=== PATIENT | female | born 1960 | race African-American/Black ===

== ENCOUNTER 2016-12-13 16:37 | Emergency (ER) | payer MEDICARE, OTHER ==
[2016-12-13 16:41] VITALS: BP 133/81; PULSE 83; RESP 18; TEMP 98
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
--- NOTE | 2016-12-13 17:53 | XR ---
EXAMINATION TYPE: XR lumbosacral spine min 4V DATE OF EXAM: 12/13/2016 5:43 PM COMPARISON: 10/17/2013 HISTORY: Back pain TECHNIQUE: 6 views FINDINGS: The vertebra have fairly normal alignment. Abdominal aorta is atheromatous. There is no sig nificant disc space narrowing. There is no compression fracture. Posterior elements are intact. There are electrode wires noted over the lower lumbar spine posteriorly. The sacroiliac joints appear inta ct. IMPRESSION: Negative lumbar spine exam. No change. No compression fracture.
[2016-12-13] MEDS ORDERED: KETOROLAC 60 MG/2 ML VIAL IM STA (17:55)
== END 2016-12-13 18:24 | disposition home or self-care (01) ==
LOC: EC 16:37
DX: M54.5 Low back pain (principal); G89.29 Other chronic pain; V89.2XXS Person injured in unspecified motor-vehicle accident, traffic, sequela; Z79.899 Other long term (current) drug therapy; Z88.7 Allergy status to serum and vaccine; I10 Essential (primary) hypertension; Z79.51 Long term (current) use of inhaled steroids; Z79.891 Long term (current) use of opiate analgesic; F32.9 Major depressive disorder, single episode, unspecified; F17.200 Nicotine dependence, unspecified, uncomplicated
CPT/HCPCS: 72110; 99283; 96372; J1885

== ENCOUNTER → 2018-12-10 | Outpatient (CLI) | payer MEDICARE, OTHER ==
[2018-12-10 18:56] LABS: Albumin 4.2 g/dL (3.80-4.90); Albumin/Globulin Ratio 1.68 (1.60-3.17); Anion Gap 6.4 mmol/L (4.00-12.00); Calcium 9.5 mg/dL (8.7-10.3); Carbon Dioxide 30.6 mmol/L (21.6-31.8); Globulin 2.5 g/dL (1.6-3.3); Potassium 4.7 mmol/L (3.5-5.5); Total Bilirubin 0.2 mg/dL (0.2-1.2); Total Protein 6.7 g/dL (6.2-8.2)
== END | disposition home or self-care (01) ==
LOC: LABWHC1 12:12
PROVIDERS: ATTEND Physician Assistant
DX: Z51.81 Encounter for therapeutic drug level monitoring (principal); Z79.891 Long term (current) use of opiate analgesic
CPT/HCPCS: 36415; 80053

== ENCOUNTER → 2018-12-10 | Outpatient (CLI) | payer MEDICARE, OTHER ==
--- NOTE | 2018-12-10 12:09 | XR ---
Lumbar spine HISTORY: Low back pain 3 views of the lumbar spine correlated prior exam 12/13/2016 The stimulator leads have been removed in the interval. Surgical clips are present in the right upper quadrant. Bone mineralization is reduced which may limit sensitivity. Degenerative disc changes are present in the lower lumbar spine. There is sclerosis in the posterior elements compatible with facet arthropathy. Loss of disc height present at L4-5, minimal anterolisthesis grade 1 is present, there is associated spondylosis. T12 shows some loss of vertebral body height at the superior endplate Mild approximately 10%. No definite retropulsion. IMPRESSION: T12 endplate compression deformity of indeterminate age. Degenerative disc disease and fa cet arthropathy. Osteopenia. CT or MRI may be of benefit. Additional findings above.
== END ==
LOC: RADXRMAIN 11:41
PROVIDERS: ATTEND Family Medicine
DX: M51.36 Other intervertebral disc degeneration, lumbar region (principal); M46.96 Unspecified inflammatory spondylopathy, lumbar region
CPT/HCPCS: 72100

== ENCOUNTER → 2019-02-22 | Outpatient (CLI) | payer MEDICARE ==
--- NOTE | 2019-02-22 13:37 | XR ---
EXAMINATION TYPE: XR hand complete LT DATE OF EXAM: 02/22/2019 COMPARISON: NONE HISTORY: Pain TECHNIQUE: Three views are submitted. FINDINGS: The osseous structures are intact. The joint spaces are preserved and there is no acute fracture or dislocation. Calcification along the PIP joint fourth digit. Diffuse osteopenia. Arthropathy of the f ifth DIP joint. Severe arthropathy first carpal metacarpal joint. IMPRESSION: 1. No definite acute fracture or dislocation if symptoms persist, follow-up study in 7 to 10 days wo uld be suggested 2. Arthropathy with severe changes involving the first carpal metacarpal joint in a pattern typical o f osteoarthritis
== END | disposition home or self-care (01) ==
LOC: RADXRMAIN 13:02
PROVIDERS: ATTEND Family Medicine
DX: M18.12 Unilateral primary osteoarthritis of first carpometacarpal joint, left hand (principal)

== ENCOUNTER → 2020-06-29 | Outpatient (CLI) | payer MEDICARE ==
--- NOTE | 2020-07-03 08:06 | MM ---
Reason for exam: screening (asymptomatic). Last mammogram was performed 8 years and 8 months ago. History: Patient is postmenopausal. Family history of premenopausal breast cancer in paternal cousin at age 46 and breast cancer in paternal cousin at age 56. Took hormonal contraceptives for 10 years beginning at age 15. Physical Findings: A clinical breast exam by your physician is recommended on an annual basis and results should be correlated with mammographic findings. MG 3D Screening Mammo W/Cad Bilateral CC and MLO view(s) were taken. Prior study comparison: October 19, 2015, mammogram, performed at [facility]. October 29, 2011, bilateral digital screening mammo w/CAD. August 22, 2009, right breast mammogram dig work up. August 15, 2009, bilateral digital screening mammogram. There are scattered fibroglandular densities. No significant changes when compared with prior studies. ASSESSMENT: Negative, BI-RAD 1 RECOMMENDATION: Routine screening mammogram of both breasts in 1 year.
== END | disposition home or self-care (01) ==
LOC: RADMAMWWP 14:45
PROVIDERS: ATTEND Family Medicine
DX: Z12.31 Encounter for screening mammogram for malignant neoplasm of breast (principal)
CPT/HCPCS: 77063; 77067

== ENCOUNTER → 2020-09-26 | Outpatient (CLI) | payer MEDICARE | END | disposition home or self-care (01) | LOC: LABWHC1 13:55 | PROVIDERS: ATTEND Family Medicine | DX: R05 Cough (principal); R06.02 Shortness of breath; R51.9 Headache, unspecified | CPT/HCPCS: U0003; C9803 ==

== ENCOUNTER 2020-12-18 09:15 | Day surgery (SDC) | payer MEDICARE ==
[2020-12-14 15:37] VITALS: BMI 37.4
[~2020-12-18 09:15] MED LIST: LACTATED RINGERS 1,000 ML IV SCH
[2020-12-18 09:53] VITALS: RESP 16; TEMP 98.2
[2020-12-18] MEDS ORDERED: PROPOFOL 10 MG/ML 20 ML VIAL IV ONE (10:07)
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
--- NOTE | 2020-12-18 10:31 | P.PCN ---
Date of Procedure: 12/18/20 Procedure(s) Performed: PREOPERATIVE DIAGNOSIS: Rectal bleeding POSTOPERATIVE DIAGNOSIS: Internal and external hemorrhoids PROCEDURE: Colonoscopy ANESTHESIA: MAC SURGEON: Darien Stokes M.D. SPECIMENS: None ENDOSCOPIC PROCEDURE: The patient was placed on the endoscopy table in the left decubitus position. The Olympus colonoscope was inserted into the anus and passed under direct visualization to the base of the cecum. The appendiceal orifice was visualized. From that point the scope was slowly withdrawn inspecting all surfaces carefully. There were no neoplastic inflammatory or polypoid lesions throughout the cecum, ascending, transverse, descending, sigmoid and rectum. There was no visible diverticulosis noted. Digital rectal examination revealed small internal and external hemorrhoids. The patient was taken to the recovery room in stable condition per anesthesia guidelines. RECOMMENDATIONS: Resume diet. Increase fiber. Follow-up colonoscopy 10 years.
[2020-12-18 10:59] VITALS: BP 126/79; PULSE 72
== END 2020-12-18 11:15 | disposition home or self-care (01) ==
LOC: ORWHC2ENDO 09:15
PROVIDERS: ATTEND Surgery
DX: K64.8 Other hemorrhoids (principal); K64.4 Residual hemorrhoidal skin tags; K21.9 Gastro-esophageal reflux disease without esophagitis; I10 Essential (primary) hypertension; M19.90 Unspecified osteoarthritis, unspecified site; E66.9 Obesity, unspecified; Z68.41 Body mass index [BMI] 40.0-44.9, adult; G47.30 Sleep apnea, unspecified; Z99.89 Dependence on other enabling machines and devices; F41.9 Anxiety disorder, unspecified; F32.9 Major depressive disorder, single episode, unspecified; F17.210 Nicotine dependence, cigarettes, uncomplicated; G89.29 Other chronic pain; M54.9 Dorsalgia, unspecified; M54.2 Cervicalgia; G43.909 Migraine, unspecified, not intractable, without status migrainosus; R22.0 Localized swelling, mass and lump, head; Z86.14 Personal history of Methicillin resistant Staphylococcus aureus infection; Z90.89 Acquired absence of other organs; Z98.891 History of uterine scar from previous surgery; Z90.49 Acquired absence of other specified parts of digestive tract; Z90.710 Acquired absence of both cervix and uterus; Z98.1 Arthrodesis status; Z98.890 Other specified postprocedural states; Z80.9 Family history of malignant neoplasm, unspecified; Z79.899 Other long term (current) drug therapy; Z99.81 Dependence on supplemental oxygen; Z88.7 Allergy status to serum and vaccine
CPT/HCPCS: 45378; J2704

== ENCOUNTER → 2021-05-21 | Outpatient (CLI) | payer MEDICARE ==
--- NOTE | 2021-05-23 07:18 | BD ---
EXAMINATION TYPE: Axial Bone Density DATE OF EXAM: 05/21/2021 COMPARISON: NONE CLINICAL HISTORY: Postmenopausal Height: 65 Weight: 247.8 FRAX RISK QUESTIONS: Alcohol (3 or more units per day): no Family History (Parent hip fracture): no Glucocorticoids (More than 3mos): no (Ex: prednisone, prednisolone, methylprednisolone, dexamethasone, and hydrocortisone). History of Fracture in Adulthood: yes Secondary Osteoporosis: 1. Type 1 Diabetes: no 2. Hyperthyroidism: no 3. Menopause before 45: yes 4. Malnutrition: no 5. Chronic liver disease: no Rheumatoid Arthritis: no Current Tobacco Use: yes RISK FACTORS HISTORY OF: Spine Fracture: yes, t-spine When: 2019 Family History of Osteoporosis: no Active: no Diet low in dairy products/other sources of calcium: yes Postmenopausal woman: before age 45 Lost more than 2 inches in height since high school: no MEDICATIONS: blood pressure, xanax, Additional History: EXAM MEASUREMENTS: Bone mineral densitometry was performed using the [employer] System. Bone mineral density as measured about the Lumbar spine is: ----- L1-L4(G/cm2): 1.100 T Score Values are as follows: ----- L2: -1.0 ----- L3: -0.3 ----- L4: -0.7 ----- L1-L4: -0.7 Bone mineral density has: increased 8.5 % since study of: 10.29.2011 Bone mineral density about the R hip (g/cm2): 0.890 Bone mineral density about the L hip (g/cm2): 0.911 T Score values are as follows: -----R Neck: -1.1 -----L Neck: -0.9 -----R Total: -1.2 -----L Total: -0.9 Bone mineral density has: decreased -3.6 % since study of: 10.29.2011 IMPRESSION: Osteopenia NOTE: T-SCORE=SD OF THE YOUNG ADULT MEAN.
== END | disposition home or self-care (01) ==
LOC: RADBDWWP 15:34
PROVIDERS: ATTEND Family Medicine
DX: M85.89 Other specified disorders of bone density and structure, multiple sites (principal)
CPT/HCPCS: 77080